=== PATIENT | female | born 1960 | race African-American/Black ===

== ENCOUNTER 2020-09-15 00:38 | Day surgery (SDC) | payer OTHER, BC ==
[~2020-09-15 00:38] MED LIST: Budeprion Xl300 MG PO; INFLECTRA100 MG IV; LEVSOD75 PO; META800 PO; ONDA4 PO; TRAM50 PO; TRAZ100 PO; VITAMIN D5000 UNIT PO
[2020-09-15] MEDS ORDERED: Trexall10 MG PO (14:59)
--- NOTE | 2020-09-15 15:22 | NUR ---
PT DECLINED ATIVAN A PRE MED TODAY.
== END 2020-09-15 16:20 | disposition home or self-care (01) ==
LOC: ATC 00:38
DX: K50.818 Crohn's disease of both small and large intestine with other complication (principal); M17.0 Bilateral primary osteoarthritis of knee; Z87.891 Personal history of nicotine dependence; Z88.8 Allergy status to other drugs, medicaments and biological substances; Z79.899 Other long term (current) drug therapy
CPT/HCPCS: 96413; 96415; A9270; J1745; J7050

== ENCOUNTER 2020-11-10 04:27 | Day surgery (SDC) | payer OTHER, BC ==
[~2020-11-10 04:27] MED LIST changes: +Trexall10 MG PO
== END 2020-11-10 16:12 | disposition home or self-care (01) ==
LOC: ATC 04:27
DX: K50.812 Crohn's disease of both small and large intestine with intestinal obstruction (principal); M17.0 Bilateral primary osteoarthritis of knee; Z87.891 Personal history of nicotine dependence; Z88.8 Allergy status to other drugs, medicaments and biological substances
CPT/HCPCS: 96413; 96415; A9270; J1745; J7050

== ENCOUNTER 2022-08-18 14:40 | Emergency (ER) | payer OTHER, BC ==
[~2022-08-18] VITALS: Ht 170.2 cm; Wt 78.9 kg
[2022-08-18] MEDS ORDERED: VALA500 PO (15:45)
[2022-08-18] MEDS ORDERED: NYST237S MT (15:45)
[2022-08-18] MEDS ORDERED: Ultram50 MG PO (15:45)
== END 2022-08-18 16:02 | disposition home or self-care (01) ==
LOC: ER 14:40
DX: B00.2 Herpesviral gingivostomatitis and pharyngotonsillitis (principal); K58.9 Irritable bowel syndrome, unspecified; Z88.8 Allergy status to other drugs, medicaments and biological substances; Z79.899 Other long term (current) drug therapy
CPT/HCPCS: 99282

== ENCOUNTER 2022-12-31 02:36 | Day surgery (SDC) | payer OTHER, BC ==
[~2022-12-31 02:36] MED LIST changes: +NYST237S MT; +PARO30 PO; +Ultram50 MG PO; +VALA500 PO
[2022-12-31 13:45] VITALS: BP 135/79
== END 2022-12-31 16:36 | disposition home or self-care (01) ==
LOC: ATC 02:36
DX: K50.818 Crohn's disease of both small and large intestine with other complication (principal); Z88.8 Allergy status to other drugs, medicaments and biological substances; Z79.899 Other long term (current) drug therapy
CPT/HCPCS: 96413; 96415; J7050; Q5103

== ENCOUNTER 2023-05-09 03:06 | Day surgery (SDC) | payer OTHER, BC ==
[~2023-05-09] VITALS: Wt 88.7 kg
[2023-05-09 13:25] VITALS: BP 158/92
== END 2023-05-09 16:08 | disposition home or self-care (01) ==
LOC: ATC 03:06
DX: K50.818 Crohn's disease of both small and large intestine with other complication (principal); F32.A Depression, unspecified; E03.9 Hypothyroidism, unspecified; M19.90 Unspecified osteoarthritis, unspecified site
CPT/HCPCS: 96413; 96415; J7050; Q5103

== ENCOUNTER 2023-07-18 00:57 | Day surgery (SDC) | payer OTHER, BC ==
[2023-07-18 14:42] VITALS: BP 127/69
[2023-07-18] MEDS ORDERED: Infliximab-DYYB 400 MG in NS 250 ML IV SCH (14:45)
== END 2023-07-18 16:56 | disposition home or self-care (01) ==
LOC: ATC 00:57
DX: K50.818 Crohn's disease of both small and large intestine with other complication (principal); E03.9 Hypothyroidism, unspecified; F32.9 Major depressive disorder, single episode, unspecified; M19.90 Unspecified osteoarthritis, unspecified site; Z88.8 Allergy status to other drugs, medicaments and biological substances; Z87.891 Personal history of nicotine dependence
CPT/HCPCS: 96413; 96415; J7050; Q5103

== ENCOUNTER 2023-11-14 06:24 | Day surgery (SDC) | payer OTHER, BC ==
[2023-11-14 08:05] VITALS: BP 133/85
[2023-11-14] MEDS ORDERED: Infliximab-DYYB 450 MG in NS 250 ML IV SCH (08:15)
== END 2023-11-14 11:14 | disposition home or self-care (01) ==
LOC: ATC 06:24
DX: K50.818 Crohn's disease of both small and large intestine with other complication (principal); F32.9 Major depressive disorder, single episode, unspecified; E03.9 Hypothyroidism, unspecified; M19.90 Unspecified osteoarthritis, unspecified site; Z88.8 Allergy status to other drugs, medicaments and biological substances
CPT/HCPCS: 96413; 96415; J7050; Q5103

== ENCOUNTER 2024-02-25 08:42 | Emergency (ER) | payer OTHER, BC ==
[~2024-02-25] VITALS: Ht 162.6 cm; Wt 86.2 kg
[2024-02-25] MEDS ORDERED: Ondansetron HCl 2 MG / ML 2ML Vial IV ONE (09:15)
[2024-02-25] MEDS ORDERED: Morphine Sulfate 4 MG/1 ML Injection IV ONE (09:15)
[2024-02-25] MEDS ORDERED: NS 1,000 ML IV SCH ×2 (09:15→11:45)
[2024-02-25 09:58] LABS: BASOPHILS ABSOLUTE AUTO 0.02 K/mm3 (0.00-0.23); BASOPHILS PERCENT AUTO 0 % (0-2); EOSINOPHILS PERCENT AUTO 0 % (0-6); Hematocrit 50.8 % (33.0-51.0); Hemoglobin 17.7 g/dL (11.5-16.0); IMMATURE GRAN ABSOLUTE AUTO 0.06 K/mm3 (0.00-0.10); IMMATURE GRAN PERCENT AUTO 0 % (0-1); LYMPHOCYTES ABSOLUTE AUTO 2.51 K/mm3 (0.84-5.20); LYMPHOCYTES PERCENT AUTO 17 % (21-46); MONOCYTES ABSOLUTE AUTO 0.73 K/mm3 (0.16-1.47); MONOCYTES PERCENT AUTO 5 % (4-13); Mean Corpuscular HGB 32.3 pg (26.0-34.0); Mean Corpuscular HGB Conc 34.8 g/dL (31.5-36.5); Mean Corpuscular Volume 93 fL (80-100); NEUTROPHILS ABSOLUTE AUTO 11.45 K/mm3 (1.96-9.15); NEUTROPHILS PERCENT AUTO 78 % (41-73); Platelet Count 247 K/mm3 (150-400); RDW Coefficient Variation 14.2 % (11.7-14.2); RDW Standard Deviation 47.6 fL (35.1-46.3); Red Blood Cell Count 5.48 M/mm3 (3.80-5.20); White Blood Cell Count 14.77 K/mm3 (4.00-11.30)
[2024-02-25 10:13] LABS: Albumin, Blood 3.9 g/dL (3.4-5.0); Bilirubin, Total 1.2 mg/dL (0.1-1.0); Bun/Creatinine Ratio 40.4 (12.0-20.0); Calcium, Blood 10.1 mg/dL (8.5-10.1); Creatinine, Blood 0.62 mg/dL (0.40-1.00); Globulin, Blood 3.9 g/dL (2.2-4.0); Total Protein, Blood 7.8 g/dL (6.4-8.2)
[2024-02-25] MEDS ORDERED: Metoclopramide HCl 5MG / ML 2ML Vial IV ONE (10:35)
[2024-02-25] MEDS ORDERED: DiphenhydrAMINE HCl 50 MG/ML 1ML Vial IV ONE (10:35)
[2024-02-25] MEDS ORDERED: MethylPREDNISolone Sod Succ 40 MG VIAL IV ONE (10:40)
[2024-02-25] MEDS ORDERED: Potassium Chloride 20 MEQ TabCR PO ONE (11:45)
[2024-02-25 12:30] VITALS: BP 148/85
[2024-02-25 12:59] LABS: Hematocrit 46.7 % (33.0-51.0)
[2024-02-25] MEDS ORDERED: ONDA4ODT MM (13:53)
[2024-02-25] MEDS ORDERED: DICY20 PO (13:53)
[2024-02-25] MEDS ORDERED: PRED20 PO (13:53)
[2024-02-28] MEDS ORDERED: Norco 5-325 Ta1 EACH PO (10:10)
== END 2024-02-25 14:35 | disposition home or self-care (01) ==
LOC: ER 08:42
PROVIDERS: Emergency Medicine
DX: K80.20 Calculus of gallbladder without cholecystitis without obstruction (principal); K50.919 Crohn's disease, unspecified, with unspecified complications; Z79.899 Other long term (current) drug therapy; Z88.8 Allergy status to other drugs, medicaments and biological substances
CPT/HCPCS: 71045; 74177; 80053; 83605; 83690; 83735; 85014; 85018; 85025; 96361; 96374-59; 96375; 99284-25; A9270; J1200; J2270; J2405; J2765; J2919; J7030; Q9967

== ENCOUNTER 2024-03-05 10:03 | Day surgery (SDC) | payer OTHER, BC ==
[~2024-03-05] VITALS: Wt 80.3 kg
[2024-03-05 08:45] VITALS: BP 118/78
[~2024-03-05 10:03] MED LIST changes: +DICY20 PO; +Infliximab-DYYB 400 MG in NS 250 ML IV SCH; +Norco 5-325 Ta1 EACH PO; +ONDA4ODT MM; +PRED20 PO
== END 2024-03-05 11:28 | disposition home or self-care (01) ==
LOC: ATC 10:03
DX: K50.818 Crohn's disease of both small and large intestine with other complication (principal); K59.00 Constipation, unspecified; E03.9 Hypothyroidism, unspecified; Z79.890 Hormone replacement therapy; Z79.899 Other long term (current) drug therapy; Z88.8 Allergy status to other drugs, medicaments and biological substances; Z87.891 Personal history of nicotine dependence; Z90.710 Acquired absence of both cervix and uterus
CPT/HCPCS: 96413; 96415; J7050; Q5103

== ENCOUNTER 2024-04-30 04:16 | Day surgery (SDC) | payer OTHER, BC ==
[~2024-04-30] VITALS: Wt 78.4 kg
[~2024-04-30 04:16] MED LIST changes: -Infliximab-DYYB 400 MG in NS 250 ML IV SCH
[2024-04-30] MEDS ORDERED: Infliximab-DYYB 400 MG in NS 250 ML IV SCH (06:00)
[2024-04-30 13:12] VITALS: BP 128/77
== END 2024-04-30 15:44 | disposition home or self-care (01) ==
LOC: ATC 04:16
DX: K50.818 Crohn's disease of both small and large intestine with other complication (principal); F32.A Depression, unspecified; E03.9 Hypothyroidism, unspecified; M19.90 Unspecified osteoarthritis, unspecified site
CPT/HCPCS: 96413; 96415; J7050; Q5103

== ENCOUNTER 2024-07-19 01:17 | Day surgery (SDC) | payer OTHER, BC ==
[~2024-07-19] VITALS: Wt 75.8 kg
[2024-07-19] MEDS ORDERED: Infliximab-DYYB 400 MG in NS 250 ML IV SCH (06:00)
[2024-07-19 13:27] VITALS: BP 145/75
== END 2024-07-19 16:22 | disposition home or self-care (01) ==
LOC: ATC 01:17
DX: K50.00 Crohn's disease of small intestine without complications (principal); Z87.891 Personal history of nicotine dependence; Z79.899 Other long term (current) drug therapy
CPT/HCPCS: 96413; 96415; J7050; Q5103

== ENCOUNTER 2024-09-29 06:35 | Day surgery (SDC) | payer BC ==
[~2024-09-29] VITALS: Ht 170.2 cm; Wt 71.8 kg
[2024-09-29] MEDS ORDERED: FOLI1 (07:15)
[2024-09-29] MEDS ORDERED: NAPR500 (07:16)
[2024-09-29] MEDS ORDERED: propofoL 50 ML IV ONE ×2 (07:37→09:07)
[2024-09-29] MEDS ORDERED: Lactated Ringer's 1,000 ML IV ONE ×2 (07:37→08:13)
[2024-09-29 09:16] VITALS: BP 132/71
== END 2024-09-29 09:38 | disposition home or self-care (01) ==
LOC: ORSCSDS 06:35
PROVIDERS: Internal Medicine Gastroenterology
PROC: 0DBE8ZX Excision of Large Intestine, Via Natural or Artificial Opening Endoscopic, Diagnostic (ICD-10-PCS; principal; 2024-09-29 08:15)
DX: K50.90 Crohn's disease, unspecified, without complications (principal); Z87.891 Personal history of nicotine dependence; Z79.899 Other long term (current) drug therapy
CPT/HCPCS: 88305; J2704; J7120

== ENCOUNTER 2024-10-13 02:21 | Day surgery (SDC) | payer BC ==
[~2024-10-13 02:21] MED LIST changes: +FOLI1; +NAPR500
[2024-10-13] MEDS ORDERED: Infliximab-DYYB 400 MG in NS 250 ML IV SCH (06:00)
[2024-10-13 14:50] VITALS: BP 120/80
== END 2024-10-13 17:18 | disposition home or self-care (01) ==
LOC: ATC 02:21
DX: K50.00 Crohn's disease of small intestine without complications (principal); Z87.891 Personal history of nicotine dependence
CPT/HCPCS: 96413; 96415; J7050; Q5103

== ENCOUNTER 2024-12-06 05:19 | Day surgery (SDC) | payer BC ==
[2024-12-06 08:31] VITALS: BP 111/70
[2024-12-06] MEDS ORDERED: IMURAN50 MG PO (08:38)
== END 2024-12-06 10:57 | disposition home or self-care (01) ==
LOC: ATC 05:19
DX: K50.90 Crohn's disease, unspecified, without complications (principal); Z79.899 Other long term (current) drug therapy; Z87.891 Personal history of nicotine dependence
CPT/HCPCS: 96413; 96415; J7050; Q5103

== ENCOUNTER 2025-02-01 01:57 | Day surgery (SDC) | payer BC ==
[~2025-02-01] VITALS: Wt 73.7 kg
[~2025-02-01 01:57] MED LIST changes: +IMURAN50 MG PO
[2025-02-01 13:34] VITALS: BP 114/74
== END 2025-02-01 16:17 | disposition home or self-care (01) ==
LOC: ATC 01:57
DX: K50.10 Crohn's disease of large intestine without complications (principal); K59.00 Constipation, unspecified; Z87.891 Personal history of nicotine dependence; Z79.899 Other long term (current) drug therapy
CPT/HCPCS: 96375; 96413; 96415; A9270; J1720; J7050; Q5103

== ENCOUNTER 2025-03-29 01:44 | Day surgery (SDC) | payer BC ==
[~2025-03-29] VITALS: Wt 71.1 kg
[2025-03-29 09:04] VITALS: BP 129/81
== END 2025-03-29 11:37 | disposition home or self-care (01) ==
LOC: ATC 01:44
DX: K50.10 Crohn's disease of large intestine without complications (principal); Z87.891 Personal history of nicotine dependence
CPT/HCPCS: 96413; 96415; J7050; Q5103

== ENCOUNTER 2025-05-17 00:08 | Day surgery (SDC) | payer BC ==
[2025-05-17 08:58] VITALS: BP 115/71
== END 2025-05-17 11:22 | disposition home or self-care (01) ==
LOC: ATC 00:08
DX: K50.119 Crohn's disease of large intestine with unspecified complications (principal); Z79.890 Hormone replacement therapy; Z79.899 Other long term (current) drug therapy; Z87.891 Personal history of nicotine dependence; Z90.49 Acquired absence of other specified parts of digestive tract
CPT/HCPCS: 96374; 96413; 96415; A9270; J1720; J7050; Q5103